=== PATIENT | female | born 1960 | race Hispanic/Latino ===

== ENCOUNTER 2023-10-17 20:00 | Emergency (ER) | payer BC ==
[~2023-10-17] VITALS: Ht 152.4 cm; Wt 65.3 kg
[2023-10-17] MEDS: CARBAMAZEPINE 200 MG TABLET PO SCH (20:49)
[2023-10-17] MEDS: HYDROCODONE/ACETAMINOPHEN 5/325 MG TAB PO ONE (20:49)
[2023-10-17] MEDS ORDERED: CARB200C7 PO (22:56)
[2023-10-17 23:24] VITALS: BP 132/76; PULSE 86; RESP 16; O2SAT 98
== END 2023-10-17 23:27 | disposition home or self-care (01) ==
LOC: EDH 20:00
DX: G50.0 Trigeminal neuralgia (principal); E11.9 Type 2 diabetes mellitus without complications